=== PATIENT | female | born 1950 | race Caucasian/White ===

== ENCOUNTER 2017-11-27 18:14 | Inpatient (IN) | payer MEDICARE, OTHER ==
[~2017-11-27] VITALS: Ht 154.9 cm; Wt 77.0 kg
[~2017-11-27 18:14] MED LIST: CEPH-368 PO; CHOL100012 PO; LATA2.5D3 EACHEYE; PRED5TAB PO
[2017-11-27] MEDS ORDERED: SODIUM CHLORIDE 0.9% 1,000ML IVBOLUS ONE (19:30)
[2017-11-27 20:04] LABS: MEAN CORPUSCULAR HEMOGLOBIN 24.5 pg (27.0-34.8); MEAN CORPUSCULAR HGB CONC 32.6 g/dL (32.4-35.8); MEAN CORPUSCULAR VOLUME 75.1 fL (80-100); MEAN PLATELET VOLUME 6.8 fL (7.4-10.4); PLATELET COUNT 489 x10^3/uL (130-400); RED BLOOD COUNT 3.29 x10^6/uL (3.82-5.3); RED CELL DISTRIBUTION WIDTH 19.9 % (9.6-15.2)
[2017-11-27 20:15] LABS: ANION GAP 7 mmol/L (5-15); CALCIUM 8.1 mg/dL (8.5-10.1); CHLORIDE 111 mmol/L (98-107); CREATININE 3.39 mg/dL (0.55-1.02)
[2017-11-27] MEDS ORDERED: MIDAZOLAM 1 MG/ML, 2ML ONE (20:23)
[2017-11-27] MEDS ORDERED: FENTANYL PF 100 MCG/2ML ONE (20:24)
[2017-11-27] MEDS ORDERED: PROPOFOL 10 MG/ML, 20ML ONE (20:25)
[2017-11-27] MEDS ORDERED: ROCURONIUM 10MG/ML,5ML ONE (20:26)
[2017-11-27] MEDS ORDERED: SUCCINYLCHOLINE 20 MG/ML, 10ML ONE (20:26)
[2017-11-27 20:27] LABS: ANISOCYTOSIS 1+; BASOPHILS # (AUTO) 0.21 x10^3/uL (0-0.1); BASOPHILS % (AUTO) 1 % (0-1); EOSINOPHILS # (AUTO) 0.04 x10^3/uL (0-0.4); EOSINOPHILS % (AUTO) 0 % (1-7); LYMPHOCYTES # (AUTO) 1.71 x10^3/uL (1-3.4); LYMPHOCYTES % (AUTO) 10 % (22-44); MD MORPH REVIEW ONLY; MONOCYTES # (AUTO) 1.56 x10^3/uL (0.2-0.8); MONOCYTES % (AUTO) 9 % (2-9); NEUTROPHILS # (AUTO) 14.51 x10^3/uL (1.8-6.8); NEUTROPHILS % (AUTO) 81 % (42-75)
[2017-11-27] MEDS ORDERED: ONDANSETRON 2MG/ML, 2ML ONE (20:27)
[2017-11-27] MEDS ORDERED: DEXAMETHASONE 4 MG/ML, 1ML ONE ×2 (20:27)
[2017-11-27 20:28] LABS: HYPOCHROMIA 1+; OVALOCYTES 1+; POLYCHROMASIA 1+
[2017-11-27 20:29] LABS: <PLATELET ESTIMATE> INCREASED; <PLT MORPHOLOGY> NORMAL PLT MORPH
[2017-11-27] MEDS ORDERED: PIPERACILLIN/TAZO/PMX 3.375GM 50 ML ONE (20:55)
[2017-11-27] MEDS ORDERED: SUGAMMADEX 200 MG/2 ML IVPush ONE (20:59)
[2017-11-27] MEDS ORDERED: LABETALOL 5MG/ML, 20ML IV PRN (21:30)
[2017-11-27] MEDS ORDERED: MORPHINE SULFATE 4 MG/ML, 1ML IVPush PRN (21:30)
[2017-11-27] MEDS ORDERED: ACETAMINOPHEN 325 MG TABLET PO PRN ×2 (21:30→23:30)
[2017-11-27] MEDS ORDERED: PROMETHAZINE 12.5 MG SUPP PR PRN (21:30)
[2017-11-27] MEDS ORDERED: ONDANSETRON ODT 8 MG PO PRN (21:30)
[2017-11-27] MEDS ORDERED: MEPERIDINE/PF 25MG/0.5ML IVPush PRN (21:30)
[2017-11-27] MEDS ORDERED: FENTANYL PF 100 MCG/2ML IV PRN (21:30)
[2017-11-27] MEDS ORDERED: HYDROmorphone 1 MG/ML, 1ML IV PRN (21:30)
[2017-11-27] MEDS ORDERED: OXYcodone 5 MG/5 ML ORAL.SOL UDC PO PRN (21:30)
[2017-11-27] MEDS ORDERED: PROMETHAZINE 25 MG SUPP PR PRN (21:30)
[2017-11-27] MEDS ORDERED: ONDANSETRON 2MG/ML, 2ML IV PRN ×2 (21:30→23:30)
[2017-11-27] MEDS ORDERED: hydrALAzine 20 MG/ML, 1ML IV PRN ×2 (21:30→23:30)
[2017-11-27] MEDS ORDERED: PROMETHAZINE 25 MG/ML, 1ML IV PRN (21:30)
[2017-11-27] MEDS: PREDNISONE MC SCH (22:00)
[2017-11-27] MEDS ORDERED: OXYcodone/APAP 5/325MG TABLET PO PRN (23:30)
[2017-11-27] MEDS ORDERED: ENALAPRILAT 1.25 MG/ML, 2ML IV PRN (23:30)
[2017-11-27] MEDS ORDERED: LORazepam 1MG TABLET PO PRN (23:30)
[2017-11-27] MEDS ORDERED: ACETAMINOPHEN 650 MG SUPP PR PRN (23:30)
[2017-11-27] MEDS ORDERED: DIPHENHYDRAMINE 25 MG CAPSULE PO PRN (23:30)
[2017-11-27] MEDS ORDERED: DIPHENHYDRAMINE 50 MG/ML, 1ML IV PRN (23:30)
[2017-11-27] MEDS ORDERED: LORazepam 2 MG/ML, 1ML IV PRN (23:30)
[2017-11-27] MEDS: PIPERACILLIN/TAZO/PMX 3.375GM 50 ML IV SCH (23:40)
[2017-11-27] MEDS: D5%-0.45% NACL 1,000 ML IV SCH (23:40)
[2017-11-28 00:15] VITALS: BP 111/67
[2017-11-28] MEDS: PREDNISONE MC SCH (03:57)
[2017-11-28 04:12] VITALS: BP 104/64
[2017-11-28 06:17] LABS: BASOPHILS # (AUTO) 0.01 x10^3/uL (0-0.1); BASOPHILS % (AUTO) 0 % (0-1); EOSINOPHILS % (AUTO) 0 % (1-7); LYMPHOCYTES # (AUTO) 0.81 x10^3/uL (1-3.4); LYMPHOCYTES % (AUTO) 6 % (22-44); MD NO; MEAN CORPUSCULAR HEMOGLOBIN 24.7 pg (27.0-34.8); MEAN CORPUSCULAR HGB CONC 32.5 g/dL (32.4-35.8); MEAN CORPUSCULAR VOLUME 75.9 fL (80-100); MEAN PLATELET VOLUME 6.2 fL (7.4-10.4); MONOCYTES # (AUTO) 0.27 x10^3/uL (0.2-0.8); MONOCYTES % (AUTO) 2 % (2-9); NEUTROPHILS # (AUTO) 11.71 x10^3/uL (1.8-6.8); NEUTROPHILS % (AUTO) 92 % (42-75); PLATELET COUNT 484 x10^3/uL (130-400); RED BLOOD COUNT 3.04 x10^6/uL (3.82-5.3); RED CELL DISTRIBUTION WIDTH 19.5 % (9.6-15.2)
[2017-11-28 06:25] LABS: ANION GAP 5 mmol/L (5-15); CHLORIDE 113 mmol/L (98-107); CREATININE 1.29 mg/dL (0.55-1.02)
[2017-11-28 07:01] VITALS: BP 103/62
[2017-11-28] MEDS: PIPERACILLIN/TAZO/PMX 3.375GM 50 ML IV SCH ×3 (08:03→23:59)
[2017-11-28] MEDS: D5%-0.45% NACL 1,000 ML IV SCH ×2 (08:04→16:13)
[2017-11-28] MEDS: PREDNISONE PO SCH ×2 (08:35→09:00)
[2017-11-28 11:21] LABS: CULTURE INDICATED? NO; MICROSCOPIC NOT IND
[2017-11-28 12:59] VITALS: BP 93/51
[2017-11-28 18:34] VITALS: BP 98/67
[2017-11-28] MEDS ORDERED: VANCOMYCIN PER PHARMACY MC PRN (19:00)
[2017-11-28] MEDS ORDERED: PHARMACOKINETIC CONSULTATION MC ONE (19:30)
[2017-11-28] MEDS ORDERED: PHARMACOKINETIC MONITORING MC PRN (19:30)
[2017-11-28] MEDS: VANCOMYCIN 1,500 MG in SODIUM CHLORIDE 0.9% 250 ML IV SCH (20:22)
[2017-11-28] MEDS: LATANOPROST OPHTH 0.005%, 2.5ML EACHEYE SCH (22:00)
[2017-11-29] VITALS (8 sets, daily range): BP systolic 94–123; BP diastolic 50–70
[2017-11-29] MEDS: D5%-0.45% NACL 1,000 ML IV SCH ×3 (02:24→22:16)
[2017-11-29 05:59] LABS: ALANINE AMINOTRANSFERASE 19 U/L (12-78); ALBUMIN 1.8 g/dL (3.4-5.0); ANION GAP 8 mmol/L (5-15); CALCIUM 7.9 mg/dL (8.5-10.1); CHLORIDE 112 mmol/L (98-107); CREATININE 0.83 mg/dL (0.55-1.02)
[2017-11-29 06:01] LABS: ALKALINE PHOSPHATASE 77 U/L (45-117); BILIRUBIN,TOTAL 0.4 mg/dL (0.2-1.0); TOTAL PROTEIN 5.3 g/dL (6.4-8.2)
[2017-11-29 06:05] LABS: MEAN CORPUSCULAR HGB CONC 32.5 g/dL (32.4-35.8); MEAN CORPUSCULAR VOLUME 76.9 fL (80-100); MEAN PLATELET VOLUME 6.1 fL (7.4-10.4); PLATELET COUNT 441 x10^3/uL (130-400); RED BLOOD COUNT 2.78 x10^6/uL (3.82-5.3); RED CELL DISTRIBUTION WIDTH 19.6 % (9.6-15.2)
[2017-11-29 06:32] LABS: BASOPHILS # (AUTO) 0.01 x10^3/uL (0-0.1); BASOPHILS % (AUTO) 0 % (0-1); EOSINOPHILS # (AUTO) 0.01 x10^3/uL (0-0.4); EOSINOPHILS % (AUTO) 0 % (1-7); LYMPHOCYTES # (AUTO) 2.19 x10^3/uL (1-3.4); LYMPHOCYTES % (AUTO) 15 % (22-44); MD SCAN; MONOCYTES # (AUTO) 0.92 x10^3/uL (0.2-0.8); MONOCYTES % (AUTO) 6 % (2-9); NEUTROPHILS # (AUTO) 11.74 x10^3/uL (1.8-6.8); NEUTROPHILS % (AUTO) 79 % (42-75)
[2017-11-29] MEDS: PIPERACILLIN/TAZO/PMX 3.375GM 50 ML IV SCH ×2 (08:46→16:26)
[2017-11-29] MEDS: PREDNISONE PO SCH (09:00)
[2017-11-29] MEDS ORDERED: OMNIPAQUE 350 MG/ML, 100ML BOTTLE ONE (11:08)
[2017-11-29] MEDS: LATANOPROST OPHTH 0.005%, 2.5ML EACHEYE SCH (20:33)
[2017-11-30] MEDS: PIPERACILLIN/TAZO/PMX 3.375GM 50 ML IV SCH ×2 (00:02→08:00)
[2017-11-30 02:00] VITALS: BP 108/69
[2017-11-30 05:29] LABS: BASOPHILS % (AUTO) 1 % (0-1); EOSINOPHILS # (AUTO) 0.31 x10^3/uL (0-0.4); EOSINOPHILS % (AUTO) 2 % (1-7); LYMPHOCYTES # (AUTO) 2.92 x10^3/uL (1-3.4); LYMPHOCYTES % (AUTO) 22 % (22-44); MD NO; MEAN CORPUSCULAR HEMOGLOBIN 25.6 pg (27.0-34.8); MEAN CORPUSCULAR VOLUME 77.6 fL (80-100); MONOCYTES % (AUTO) 8 % (2-9); NEUTROPHILS # (AUTO) 8.78 x10^3/uL (1.8-6.8); NEUTROPHILS % (AUTO) 67 % (42-75); PLATELET COUNT 470 x10^3/uL (130-400); RED BLOOD COUNT 3.31 x10^6/uL (3.82-5.3); RED CELL DISTRIBUTION WIDTH 19.3 % (9.6-15.2)
[2017-11-30 05:39] LABS: CHLORIDE 109 mmol/L (98-107)
[2017-11-30 05:44] LABS: ANION GAP 10 mmol/L (5-15); CALCIUM 7.8 mg/dL (8.5-10.1); CREATININE 0.82 mg/dL (0.55-1.02)
[2017-11-30] MEDS: D5%-0.45% NACL 1,000 ML IV SCH ×2 (06:12→11:52)
[2017-11-30 08:06] VITALS: BP 121/73
[2017-11-30] MEDS: POTASSIUM CHLORIDE 20 MEQ TAB.ER.PRT PO SCH ×2 (08:54→10:30)
[2017-11-30] MEDS: VANCOMYCIN 1,500 MG in SODIUM CHLORIDE 0.9% 250 ML IV SCH (08:54)
[2017-11-30] MEDS ORDERED: PREDNISONE PO SCH (09:00)
[2017-11-30] MEDS ORDERED: CIPR500T87 PO ×2 (14:09→15:16)
[2017-11-30] MEDS ORDERED: METR500T PO ×2 (14:09→15:16)
[2017-11-30 14:28] VITALS: BP 122/72
[2017-11-30] MEDS ORDERED: TAMS-11 PO (15:18)
== END 2017-11-30 15:56 | disposition home or self-care (01) | DRG 871 ==
LOC: ED 20:01 → 4NOR 20:03 → DCLOUNGE 11-30 15:37
PROVIDERS: ADMIT Family Medicine; ATTEND Internal Medicine
PROC: 0DJD8ZZ Inspection of Lower Intestinal Tract, Via Natural or Artificial Opening Endoscopic (ICD-10-PCS; 2017-11-27)
PROC: 0DJDXZZ Inspection of Lower Intestinal Tract, External Approach (ICD-10-PCS; 2017-11-27)
PROC: 0UJHXZZ Inspection of Vagina and Cul-de-sac, External Approach (ICD-10-PCS; 2017-11-27)
PROC: 0T9B70Z Drainage of Bladder with Drainage Device, Via Natural or Artificial Opening (ICD-10-PCS; principal; 2017-11-28)
PROC: 30233N1 Transfusion of Nonautologous Red Blood Cells into Peripheral Vein, Percutaneous Approach (ICD-10-PCS; 2017-11-29)
DX: A41.9 Sepsis, unspecified organism (principal); E43 Unspecified severe protein-calorie malnutrition; N17.9 Acute kidney failure, unspecified; N13.6 Pyonephrosis; C50.919 Malignant neoplasm of unspecified site of unspecified female breast; D64.9 Anemia, unspecified; H40.9 Unspecified glaucoma; J44.9 Chronic obstructive pulmonary disease, unspecified; M81.0 Age-related osteoporosis without current pathological fracture; K59.00 Constipation, unspecified; D12.8 Benign neoplasm of rectum; R65.20 Severe sepsis without septic shock; Z80.42 Family history of malignant neoplasm of prostate; Z80.7 Family history of other malignant neoplasms of lymphoid, hematopoietic and related tissues; Z82.5 Family history of asthma and other chronic lower respiratory diseases; Z85.038 Personal history of other malignant neoplasm of large intestine; Z85.3 Personal history of malignant neoplasm of breast; Z85.820 Personal history of malignant melanoma of skin; Z87.440 Personal history of urinary (tract) infections
CPT/HCPCS: 36415; 74177; 76770; 80048; 80053; 81003; 82040; 83735; 84100; 85014; 85018; 85025; 86850; 86900; 86923; 87040; 96360; G0378; J1100; J2250; J2405; J2543; J2704; J3010; J3370; Q9967; J0330; J7030; J7050; P9016